=== PATIENT | female | born 1955 | race Caucasian/White ===

== ENCOUNTER 2019-10-15 12:44 | Outpatient (CLI) | payer MEDICARE, SELFPAY ==
--- NOTE | 2019-10-15 12:54 | XR_ITS ---
WS: [id number] Mandible 4 views. HISTORY: Right-sided jaw and ear pain. No mandibular fracture or displacement is identified. Mandibular condyle appears intact. TM joints an d the mandibular heads are very poorly visualized. No air-fluid levels in the visualized sinuses. XR/XR mandible min 4V [id number] IMPRESSION: No mandible fracture identified. If pain continues consider follow-up with CT e valuation.
== END 2019-10-15 12:45 | disposition home or self-care (01) ==
LOC: RADWPI 12:50
PROVIDERS: Family Provider Family Medicine; PCP Family Medicine; Visit Provider Specialist
DX: R68.84 Jaw pain (principal); H92.01 Otalgia, right ear
CPT/HCPCS: 70110

== ENCOUNTER 2019-10-29 07:44 | Outpatient (CLI) | payer MEDICARE, SELFPAY ==
--- NOTE | 2019-10-29 07:56 | CT_ITS ---
WS: [id number] CT NECK TECHNIQUE: Contrast-enhanced CT of the neck with coronal and sagittal reformatted images. CLINICAL INFORMATION: OTALGIA, RIGHT EAR COMPARISON: None. DLP: 1769.[address] scans at [facility] use at least one of these dose optimization techniques: automat ed exposure control; mA and/or kV adjustment per patient size (includes targeted exams where dose is matched to clinical indication); or iterative reconstruction. FINDINGS: Parotid glands are normal. Normal submandibular glands. Tongue base is normal. Normal parapharyngeal fat. Normal epiglottis. No evidence of supraglottic or glottic mass. Subglottic larynx is normal. Thy roid gland is normal. Mild cervical curve convex right. No cervical lymphadenopathy. Partially visual ized intracranial contents are normal. Visualized orbits are normal. Mastoid air cells and paranasal sinuses are well aerated. Lung apices are well aerated. Straightening of the normal cervical lordosis. Mild spondylitic changes. CT/CT neck w con* [id number] IMPRESSION: 1. No cervical lymphadenopathy. 2. No evidence of supraglottic or glottic mass. Airway is patent. 3. 1.7 cm retention cyst left maxillary sinus. Mastoid air cells well aerated. 4. Mild spondylitic changes cervical spine with mild central canal stenosis C5 -C7.
[2019-10-29 08:27] LABS: Blood Urea Nitrogen 5 mg/dL (8-23)
[2019-10-29] MEDS: iohexol 300 mg/mL 100 mL Btl IV (08:32)
== END 2019-10-29 07:45 | disposition home or self-care (01) ==
LOC: RADWPI 07:49
PROVIDERS: Family Provider Family Medicine; PCP Family Medicine; Visit Provider Specialist
DX: H92.01 Otalgia, right ear (principal); J34.1 Cyst and mucocele of nose and nasal sinus; M48.02 Spinal stenosis, cervical region
CPT/HCPCS: 70491; 82565; 84520; Q9967

== ENCOUNTER 2021-11-01 09:33 | Outpatient (CLI) | payer MEDICARE, SELFPAY ==
--- NOTE | 2021-11-01 09:45 | XR_ITS ---
WS: [id number] SCREENING DEXA SCAN [employer] CLINICAL INFORMATION: OSTEOPOROSIS COMPARISON: FINDINGS: The L1-L4 bone mineral density measures 0.872 g/cm2. This corresponds to a T score score of -2.6 and Z score of -0.9. Left femoral neck bone mineral density measures 0.865 g/cm2. This corresponds to a T score of -1.1 an d Z score of 0.2. Right femoral neck bone mineral density measures 0.776 g/cm2. This corresponds to a T score -1.8of an d Z score of -0.5. Mean femoral neck bone mineral density measures 0.820 g/cm2. This corresponds to a T score of -1.5 an d Z score of -0.2. XR/XR DEXA axial skeleton* [id number] IMPRESSION: Osteoporosis lumbar spine. Osteopenia in the femoral necks. Patient's FRAX calculated 10 year probability for major osteoporotic fracture i s 23.4 % and osteoporotic hip fracture is 4.3%.
== END 2021-11-01 09:34 | disposition home or self-care (01) ==
LOC: RAD 09:36
PROVIDERS: PCP Family Medicine; Visit Provider Family Medicine
DX: M81.0 Age-related osteoporosis without current pathological fracture (principal); M85.88 Other specified disorders of bone density and structure, other site
CPT/HCPCS: 77080

== ENCOUNTER 2021-12-13 13:53 | Outpatient (CLI) | payer MEDICARE, SELFPAY ==
--- NOTE | 2021-12-13 13:59 | MM_ITS ---
WS: [id number] VIEWS: MLO and CC views both breasts. 3D digital tomosynthesis is also included in this exam. Comparison made with prior exam of 04/30/2019. Findings: There was no sign of mass, architectural distortion or suspicious calcification in either breast. Sc attered fibroglandular densities. Stable appearing small nodules in both breasts. MM/[place] [id number] Impression: BI-RADS: 2-Benign FOLLOW-UP: 1 Year Follow-up This mammogram was also analyzed by the Computer Aided Detection System [employer]2 Imag e Management Liaison.
== END 2021-12-13 13:54 | disposition home or self-care (01) ==
LOC: RADSHAW 13:56
PROVIDERS: PCP Family Medicine; Visit Provider Family Medicine
DX: Z12.31 Encounter for screening mammogram for malignant neoplasm of breast (principal)
CPT/HCPCS: 77063; 77067

== ENCOUNTER → 2023-03-08 16:00 | Outpatient (BNVA) | payer MEDICARE, SELFPAY | PROVIDERS: PCP Family Medicine; Visit Provider Obstetrics & Gynecology | DX: R87.623 High grade squamous intraepithelial lesion on cytologic smear of vagina (HGSIL) (principal); Z12.11 Encounter for screening for malignant neoplasm of colon | CPT/HCPCS: 87624 ==

== ENCOUNTER 2023-05-03 10:42 | Outpatient (CLI) | payer MEDICARE, SELFPAY ==
--- NOTE | 2023-05-03 10:48 | MM_ITS ---
WS: [id number] BILATERAL 3D TOMOSYNTHESIS DIGITAL SCREENING MAMMOGRAPHY WITH CAD CLINICAL INFORMATION: Z12.39 - Encounter for other screening for malignant neop... HISTORY: Screening mammogram. No current complaints. COMPARISON: 2021 TECHNIQUE: Bilateral CC and MLO views. FINDINGS: Scattered fibroglandular densities bilaterally. No suspicious focal mass, asymmetry, calcifications, or architectural distortion. No evidence of malignancy. Vascular calcification. Incidental punctate c alcifications. Stable diffuse RIGHT breast calcifications. IMPRESSION: MM/[place] [id number] BI-RADS: 2-Benign FOLLOW UP: 1 Year Follow-up Recommend return to annual screening mammography.
== END 2023-05-03 10:43 | disposition home or self-care (01) ==
LOC: RAD 10:46 → MOBLMAM 10:47
PROVIDERS: PCP Family Medicine; Visit Provider Family Medicine
DX: Z12.31 Encounter for screening mammogram for malignant neoplasm of breast (principal)
CPT/HCPCS: 77063; 77067

== ENCOUNTER → 2024-05-15 16:09 | Outpatient (BNVA) | payer MEDICARE, SELFPAY | PROVIDERS: PCP Family Medicine; Visit Provider Obstetrics & Gynecology | DX: Z01.419 Encounter for gynecological examination (general) (routine) without abnormal findings (principal) | CPT/HCPCS: 87624 ==

== ENCOUNTER 2024-07-31 09:44 | Outpatient (CLI) | payer MEDICARE, SELFPAY ==
--- NOTE | 2024-07-31 09:49 | MM_ITS ---
WS: [id number] Bilateral screening 3D tomosynthesis digital mammogram, 07/31/2024 9:49 AM Clinical Data: Z12.39 - Encounter for other screening for malignant neop... Comparison: 05/03/2023, 12/13/2021, 06/10/2019, 04/30/2019, 02/27/2018, 08/29/2016, 03/25/2015, 03/11/2014, 03/12/2013, 09/28/2011, 02/15/2011, 08/30/2010. Findings: No spiculated masses or clustered calcifications are seen. There are no secondary signs of carcinoma . There are scattered benign and vascular calcifications throughout both breasts. MM/MM [facility] tomosynthesis [id number] Impression: Negative bilateral mammogram unchanged. Recommend annual screening mammograms. BIRADS: 1 - Negative. FOLLOW UP: 1 Year Follow-up DENSITY: There are scattered areas of fibroglandular density. The CAD material checker was used
== END 2024-07-31 09:45 | disposition home or self-care (01) ==
PROVIDERS: PCP Family Medicine; Visit Provider Family Medicine
DX: Z12.31 Encounter for screening mammogram for malignant neoplasm of breast (principal); R92.1 Mammographic calcification found on diagnostic imaging of breast
CPT/HCPCS: 77063; 77067